=== PATIENT | male | born 1960 | race Caucasian/White ===

== ENCOUNTER 2021-09-16 21:23 | Emergency (ER) | payer SELFPAY ==
[~2021-09-16] VITALS: Ht 177.8 cm; Wt 79.8 kg
[2021-09-16 21:41] VITALS: BP 114/76
[2021-09-16] MEDS ORDERED: LACTATED RINGERS 1,000 ML IV SCH (21:45)
--- NOTE | 2021-09-16 21:46 | ED General ---
General Stated Complaint: DIZZINESS Source of Information: Patient Exam Limitations: Intoxication History of Present Illness Date Seen by Provider: Sep 16, 2021 Time Seen by Provider: 21:30 Initial Comments Patient is a 60-year-old male who presents to the emergency department today after a fall. Apparently the patient fell at home after drinking potentially a half a pint of alcohol. He states that he drinks alcohol daily as well as smokes marijuana daily. The fire department was called and found that he was a little hypoglycemic in the mid 50s. EMS arrived, subsequently checked his blood sugar it was in the 90s. The patient has somewhat erratic and tangential speech. He is difficult to keep focused. He has no complaints at this time. He does state that he was exposed to COVID 5 or 6 days ago. He is not vaccinated. He states he has had 2 prior infections with COVID. He is not short of breath but does have an occasionally productive cough. He does smoke cigarettes as well. He does not take any daily medications. He states that he has not seen a doctor in 7 years. No complaints of extremity pain or loss of function. He states that his toes are "numb" and they have been that way for a year. All other review of systems reviewed and negative except as stated Timing/Duration: Other (unknown) Associated Systoms: Cough Allergies and Home Medications Allergies Coded Allergies: codeine (Verified Allergy, Unknown, 09/16/21) Patient Home Medication List Home Medication List Reviewed: Yes Review of Systems Review of Systems Constitutional: see HPI EENTM: no symptoms reported Respiratory: cough Cardiovascular: no symptoms reported Gastrointestinal: no symptoms reported Genitourinary: no symptoms reported Musculoskeletal: no symptoms reported Skin: no symptoms reported Psychiatric/Neurological: Other ("can't feel my toes") All Other Systems Reviewed Negative Unless Noted: Yes Physical Exam Vital Signs Vital Signs - First Documented 09/16/21 21:41 Temp 36.5 Pulse 83 Resp 24 B/P (MAP) 114/76 (89) Pulse Ox 98 Capillary Refill : Height, Weight, BMI Height: '" Weight: lbs. oz. kg; BMI Method: General Appearance: No Apparent Distress, WD/WN Eyes: Bilateral Eye Normal Inspection, Bilateral Eye PERRL, Bilateral Eye EOMI HEENT: PERRL/EOMI, Moist Mucous Membranes Neck: Full Range of Motion, Non Tender Respiratory: Lungs Clear, Normal Breath Sounds, No Accessory Muscle Use, No Respiratory Distress Cardiovascular: Regular Rate, Rhythm (80's), Normal Peripheral Pulses, Other (blood pressure 118 Systolic) Gastrointestinal: Normal Bowel Sounds, Soft, Other (mild tenderness LLQ (patient states he only has BM every 5 days)) Extremity: Normal Capillary Refill, Normal Inspection, Normal Range of Motion, Non Tender, No Calf Tenderness, No Pedal Edema Neurologic/Psychiatric: Alert, No Motor/Sensory Deficits, Normal Mood/Affect, records supervisor II-XII Norm as Tested, Other (appears intoxicated, tangential and erratic speech. Difficult to keep him focused (consistent with intoxication)) Skin: Normal Color, Warm/Dry, Other (superficial minimal abrasions to bridge of nose, left eye brow and right cheek bone)) Progress/Results/Core Measures Suspected Sepsis SIRS Temperature: Pulse: Respiratory Rate: Blood Pressure / Mean: Results/Orders Lab Results Laboratory Tests Test 09/16/21 21:38 Range/Units SARS-CoV-2 RNA (RT-PCR) Not Detected Not Detecte My Orders Orders - VIRGINIA LUA MD Covid 19 Inhouse Test (09/16/21 21:38) Isolation Central Supply Req (09/16/21 21:38) Lactated Ringers (Lr 1000 Ml Iv Solution (09/16/21 21:45) Vital Signs/I&O 09/16/21 21:41 Temp 36.5 Pulse 83 Resp 24 B/P (MAP) 114/76 (89) Pulse Ox 98 Capillary Refill : Progress Note : Time: 23:41 Progress Note Sleeping soundly, vital signs stable. COVID test is negative. He has had 1 L of fluids. He feels better on discharge. Again no complaints were voiced other than chronic cough chronic neck pain, alcoholism. Patient is encouraged to follow-up with [facility]. All questions are sought and answered. Departure Impression Primary Impression: Fall Qualified Codes: W19.XXXA - Unspecified fall, initial encounter Additional Impressions: Facial abrasion Qualified Codes: S00.81XA - Abrasion of other part of head, initial encounter Alcoholism Cough Qualified Codes: R05.3 - Chronic cough Disposition: 01 HOME, SELF-CARE Condition: Stable Departure-Patient Inst. Decision time for Depature: 23:42 Referrals: [facility] Patient Instructions: Cough in Adults, Alcohol Use Disorder (DC) Add. Discharge Instructions: Your COVID test was negative today. You have been given a liter of fluids to help with dehydration/alcohol intoxication. You very much should follow-up with [facility] to establish routine medical care. Please come back to the emergency department if you have any new, concerning or emergent complaints. VIRGINIA LUA MD Sep 16, 2021 21:46
== END 2021-09-17 00:03 | disposition home or self-care (01) ==
LOC: ER 21:27
DX: S00.31XA Abrasion of nose, initial encounter (principal); S00.212A Abrasion of left eyelid and periocular area, initial encounter; S00.81XA Abrasion of other part of head, initial encounter; F10.20 Alcohol dependence, uncomplicated; R05.3 Chronic cough; M54.2 Cervicalgia; G89.29 Other chronic pain; R10.32 Left lower quadrant pain; F17.210 Nicotine dependence, cigarettes, uncomplicated; Z20.822 Contact with and (suspected) exposure to COVID-19; Z28.310 Unvaccinated for COVID-19; W19.XXXA Unspecified fall, initial encounter; Y92.009 Unspecified place in unspecified non-institutional (private) residence as the place of occurrence of the external cause
CPT/HCPCS: 87636; 99283